=== PATIENT | female | born 1980 | race Two or more races ===

== ENCOUNTER 2018-12-02 08:18 | Emergency (ER) | payer MEDICAID, OTHER ==
[~2018-12-02] VITALS: Ht 149.9 cm; Wt 79.4 kg
[2018-12-02 09:14] LABS: Urine Bacteria FEW /hpf (None Seen); Urine Blood 2+ /uL (Negative); Urine Mucus FEW (None Seen); Urine Specific Gravity 1.024 (1.001-1.035); Urine WBC 1 /hpf (0 - 5)
[2018-12-02 09:31] LABS: Albumin 3.5 g/dL (3.4-5.0); Basophils # (auto) 0 uL; Basophils % (auto) 0.7 % (0.0-2.0); Calcium 9.1 mg/dL (8.5-10.1); Eosinophils # (auto) 0.1 uL; Eosinophils % (auto) 1.5 % (0.0-7.0); Hemoglobin 14.4 g/dL (12.2-16.2); Nucleated Red Blood Cells % 0.1 %; Potassium 3.8 mmol/L (3.5-5.1)
[2018-12-02 09:33] LABS: Hematocrit 43.4 % (36.0-46.0); Lymphocytes # (auto) 1.9 uL; Lymphocytes % (auto) 26.7 % (10.0-50.0); Mean Corpuscular Hemoglobin 27.3 pg (28.0-32.0); Mean Corpuscular Hgb Conc. 33.2 g/dL (32.0-36.0); Mean Corpuscular Volume 82.1 fL (80.0-100.0); Monocytes # (auto) 0.5 uL; Monocytes % (auto) 7.5 % (0.0-12.0); Neutrophils # (auto) 4.6 uL; Neutrophils % (auto) 63.6 % (37.0-80.0); Platelet Count (auto) 263 10^3/uL (140-450); Red Blood Cells 5.28 10^6/uL (4.0-5.20); Red Cell Distribution Width 17.8 % (11.8-14.3); White Blood Cell 7.2 10^3/uL (4.4-10.8)
[2018-12-02 09:35] LABS: BUN/Creatinine Ratio 16.7; Bilirubin, Total 0.5 mg/dL (0.2-1.0); Total Protein 7.8 g/dL (6.4-8.2)
[2018-12-02] MEDS ORDERED: LABETALOL HCL 5 MG/ML ML 20ML VIAL IV ONE (11:00)
[2018-12-02 13:19] VITALS: BP 134/78
== END 2018-12-02 13:44 | disposition home or self-care (01) ==
LOC: ER 08:25
DX: N93.8 Other specified abnormal uterine and vaginal bleeding (principal); R73.9 Hyperglycemia, unspecified; R74.8 Abnormal levels of other serum enzymes; I10 Essential (primary) hypertension; E66.9 Obesity, unspecified; Z68.35 Body mass index [BMI] 35.0-35.9, adult; Z88.8 Allergy status to other drugs, medicaments and biological substances
CPT/HCPCS: 36415; 76856; 80053; 81001; 83690; 84702; 85025; 96374

== ENCOUNTER 2021-08-22 10:17 | Emergency (ER) | payer MEDICAID ==
[~2021-08-22] VITALS: Ht 149.9 cm; Wt 66.7 kg
[2021-08-22 10:49] LABS: Basophils # (auto) 0 10 ^3/uL (0-0.2); Eosinophils # (auto) 0.1 10 ^3/uL (0-0.8); Eosinophils % (auto) 1.6 % (0.0-7.0); Hemoglobin 10.2 g/dL (12.2-16.2); Lymphocytes # (auto) 1.5 10 ^3/uL (0.4-5.4); Monocytes # (auto) 0.3 10 ^3/uL (0-1.3)
[2021-08-22 10:51] LABS: Hematocrit 31.8 % (36.0-46.0); Lymphocytes % (auto) 31.2 % (10.0-50.0); Mean Corpuscular Hemoglobin 24.4 pg (28.0-32.0); Mean Corpuscular Hgb Conc. 31.9 g/dL (32.0-36.0); Mean Corpuscular Volume 76.6 fL (80.0-100.0); Monocytes % (auto) 5.4 % (0.0-12.0); Neutrophils % (auto) 60.8 % (37.0-80.0); Nucleated Red Blood Cells % 0.3 %; Red Blood Cells 4.16 10^6/uL (4.0-5.20); Red Cell Distribution Width 16.9 % (11.8-14.3); White Blood Cell 4.9 10^3/uL (4.4-10.8)
[2021-08-22 11:09] LABS: Albumin 3.2 g/dL (3.4-5.0); Calcium 8.6 mg/dL (8.5-10.1); Potassium 4.3 mmol/L (3.5-5.1)
[2021-08-22 11:13] LABS: BUN/Creatinine Ratio 10.3; Bilirubin, Total 0.6 mg/dL (0.2-1.0); Total Protein 7.5 g/dL (6.4-8.2)
[2021-08-22] MEDS ORDERED: MECLIZINE HCL 25 MG TAB PO ONE (13:00)
[2021-08-22 13:28] LABS: Urine Bacteria NONE SEEN /hpf (None Seen); Urine Blood Negative /uL (Negative); Urine Mucus FEW (None Seen); Urine Specific Gravity 1.021 (1.001-1.035); Urine WBC 9 /hpf (0 - 5)
[2021-08-22] MEDS ORDERED: MECL25TA18 PO ×2 (14:50→15:17)
[2021-08-22] MEDS ORDERED: ONDA-144 PO ×2 (14:50→15:17)
[2021-08-22 15:00] VITALS: BP 161/78
== END 2021-08-22 16:14 | disposition home or self-care (01) ==
LOC: ER 10:17
DX: R42 Dizziness and giddiness (principal); R51.9 Headache, unspecified; D64.9 Anemia, unspecified; R73.9 Hyperglycemia, unspecified; J45.909 Unspecified asthma, uncomplicated; Z79.899 Other long term (current) drug therapy; Z88.8 Allergy status to other drugs, medicaments and biological substances
CPT/HCPCS: 36415; 70450; 80053; 81001; 81025; 85025; 93005; 99285; J8597

== ENCOUNTER 2024-08-24 16:39 | Emergency (ER) | payer MEDICAID ==
[~2024-08-24] VITALS: Ht 157.5 cm; Wt 81.3 kg
[~2024-08-24 16:39] MED LIST: MECL-90 PO; ONDA-144 PO
[2024-08-24 16:55] VITALS: BP 211/109; PULSE 96; RESP 20; TEMP 98.8; O2SAT 98
--- NOTE | 2024-08-24 16:58 | ED.PDOC ---
HPI Comments 44 year old female presents to the ED with a chief complaint of chest pain onset last night. Patient has a PMHx of HTN, is not compliant with medication, last dose was taken 1 day ago. Patient was laying down when she began experiencing chest pain, described as a pressure sensation as well as low back pain, shortness of breath. She took "XL-3" medication for cough and cold symptoms with slight improvement. Patient came to urgent care and was sent to ED due to high BP, 224/114. Upon ED arrival BP was 211/109. Patient states she has had increased of stress these past few days. Denies nausea, vomiting, diarrhea, headache, dizziness, cough, dysuria, fever, chills. No other symptoms or modifying factors present at this time. Time Seen by MD: 16:45 Primary Care Provider: KATARINA Reviewed Notes: Nurses Notes, Medications, Allergies Allergies: Coded Allergies: Sumatriptan (Verified Allergy, Severe, 12/02/18) Home Meds Active Scripts Ondansetron (Zofran) 4 Mg Tab, 4 MG PO Q8HPRN PRN for 3 Days, #10 MG Prov:TAVO MILLER DO 08/22/21 Meclizine Hcl (Meclizine Hcl) 25 Mg Tab, 25 MG PO TIDPRN PRN for 3 Days, #10 MG Prov:TAVO MILLER DO 08/22/21 Information Source: Patient Mode of Arrival: Ambulatory Severity: Moderate Timing: Days Duration: Since onset Prehospital treatment: None Location: Chest (L) Radiation: No Radiation Quality: Pressure Onset: At Rest Cardiac Risk Factors: HTN PE Risk Factors: None History of: None Modifying Factors: Nothing Associated Signs and Symptoms: SOB Past Medical History PAST MEDICAL HISTORY: HTN 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 History: Other Family History Family History: Family hx of DM, Family hx of heart kristen, Family hx of HTN Social History Smoker: Non-Smoker Alcohol: Occasionally Drugs: Denies Drug Use Lives In: Home Constitutional: denies: chills, diaphoresis, fatigue, fever, malaise, sweats, weakness, others EENTM: denies: blurred vision, double vision, ear bleeding, ear discharge, ear drainage, ear pain, ear ringing, eye pain, eye redness, hearing loss, mouth pain, mouth swelling, nasal discharge, nose bleeding, nose congestion, nose pain, photophobia, tearing, throat pain, throat swelling, voice changes, others Respiratory: denies: cough, hemoptysis, orthopnea, SOB at rest, shortness of breath, SOB with excertion, stridor, wheezing, others Cardiovascular: reports: chest pain; denies: dizzy spells, diaphoresis, Dyspnea on exertion, edema, irregular heart beat, left arm pain, lightheadedness, palpitations, PND, syncope, others Gastrointestinal: denies: abdomen distended, abdominal pain, blood streaked bowels, constipated, diarrhea, dysphagia, difficulty swallowing, hematemesis, melena, nausea, poor appetite, poor fluid intake, rectal bleeding, rectal pain, vomiting, others Genitourinary: denies: abnormal vagina bleeding, burning, dyspareunia, dysuria, flank pain, frequency, hematuria, incontinence, pain, , vagina discharge, urgency, others Neurological: denies: dizziness, fainting, headache, left sided numbness, left sided weakness, numbness, paresthesia, pre-existing deficit, right sided numbness, right sided weakness, seizure, speech problems, tingling, tremors, weakness, others Musculoskeletal: reports: back pain; denies: gout, joint pain, joint swelling, muscle pain, muscle stiffness, neck pain, others Integumetry: denies: bruises, change in color, change in hair/nails, dryness, laceration, lesions, lumps, rash, wounds, others Allergic/Immunocompromised: denies: Difficulty Healing, Frequent Infections, Hives, Itching, others Hematologic/Lymphatic: denies: anemia, blood clots, easy bleeding, easy bruising, swollen glands, others Endocrine: denies: excessive hunger, excessive sweating, excessive thirst, excessive urination, flushing, intolerance to cold, intolerance to heat, unexplained weight gain, unexplained weight loss, others Psychiatric: denies: anxiety, bipolar disorder, depression, hopeless, panic disorder, schizophrenia, sleepless, suicidal, others All Other Systems: Reviewed and Negative Physical Exam General Appearance: Moderate Distress HEENT: Normal ENT Inspection, Pharynx Normal, TMs Normal Neck: Full Range of Motion, Non-Tender, Normal, Normal Inspection Respiratory: Chest Non-Tender, Lungs Clear, No Accessory Muscle Use, No Respiratory Distress, Normal Breath Sounds Cardiovascular: No Edema, No JVD, No Murmur, No Gallop, Normal Peripheral Pulses, Regular Rate/Rhythm Breast Exam: Deferred Gastrointestinal: No Organomegaly, Non Tender, No Pulsatile Mass, Normal Bowel Sounds, Soft Genitalia: Deferred Pelvic: Deferred Rectal: Deferred Extremities: No calf tenderness, Normal capillary refill, No pedal edema Musculoskeletal : Apperance: Normal Neurologic: Alert, brush filler hand II-XII nml as Tested, No Motor Deficits, Normal Affect, Normal Mood, No Sensory Deficits Cerebellar Function: Normal Reflexes: Normal Skin: Dry, Normal Color, Warm Lymphatic: No Adenopathy EKG EKG : Cardiac Rhythm: ST (102) Hypertrophy: LAE, LVH Comments tachycardiac 102 bpm Was a procedure done? Was a procedure done?: No CP Differential Dx Differential Diagnosis: Angina, NV, Pulmonary Embolus Differential Diagnosis: CHF Differential Diagnosis: Pericarditis X-Ray, Labs, Meds, VS Vital Signs Date Time Temp Pulse Resp B/P (MAP) Pulse Ox O2 Delivery O2 Flow Rate FiO2 08/24/24 16:55 98.8 96 20 211/109 (143) 98 98.8 08/24/24 16:44 102 Lab Test 08/24/24 16:51 Range/Units White Blood Count 4.1 L 4.4-10.8 10^3/uL Red Blood Count 5.32 H 4.0-5.20 10^6/uL Hemoglobin 9.5 L 12.2-16.2 g/dL Hematocrit 32.6 L 36.0-46.0 % Mean Corpuscular Volume 61.3 L 80.0-100.0 fL Mean Corpuscular Hemoglobin 17.8 L 28.0-32.0 pg Mean Corpuscular Hemoglobin Concent 29.1 L 32.0-36.0 g/dL Red Cell Distribution Width 20.2 H 11.8-14.3 % Platelet Count 219 140-450 10^3/uL Mean Platelet Volume 8.7 6.9-10.8 fL Neutrophils (%) (Auto) 73.4 37.0-80.0 % Lymphocytes (%) (Auto) 14.5 10.0-50.0 % Monocytes (%) (Auto) 10.2 0.0-12.0 % Eosinophils (%) (Auto) 0.7 0.0-7.0 % Basophils (%) (Auto) 1.2 0.0-2.0 % Neutrophils # (Auto) 3.0 1.6-8.6 10 ^3/uL Lymphocytes # (Auto) 0.6 0.4-5.4 10 ^3/uL Monocytes # (Auto) 0.4 0-1.3 10 ^3/uL Eosinophils # (Auto) 0 0-0.8 10 ^3/uL Basophils # (Auto) 0 0-0.2 10 ^3/uL Nucleated Red Blood Cells 0.1 % D-Dimer, Quantitative 0.41 0.0-0.49 mg/L FEU Sodium Level 135 L 136-145 mmol/L Potassium Level 3.6 3.5-5.1 mmol/L Chloride Level 100 98-107 mmol/L Carbon Dioxide Level 26 20-31 mmol/L Anion Gap 9 5-15 Blood Urea Nitrogen 6 L 9-23 mg/dL Creatinine 0.62 0.550-1.02 mg/dL Glomerular Filtration Rate Calc 113 >90 mL/min BUN/Creatinine Ratio 9.7 L 10.0-20.0 Serum Glucose 248 H 74-106 mg/dL Calcium Level 9.5 8.7-10.4 mg/dL Troponin I High Sensitivity 4 </=34 ng/L The patient was CBC shows anemia with a hemoglobin of 9.5 and hematocrit 32.6 The rest of the CBC is within normal limits The D-dimer is 0.41 The chemistry panel is within normal limits except for hyperglycemia at 248 The troponin level is negative At this time, the patient was to be further evaluated and a has a chest x-ray but it seems that the patient was eloped from the department's We told the patient was specifically that the blood pressure was too elevated to leave with the patient's seems to have eloped Time of 1ST Reevaluation: 17:15 Reevaluation 1ST: Unchanged Patient Education/Counseling: Diagnosis, Treatment, Prognosis Family Education/Counseling: No Family Present Additional Information -Reviewed patient's previous visit(s): None - The following tests were ordered, and results were reviewed by me: EKG -x3, CBC, D-DIMER, XY CHEST 2 VIEWS, TROP -x3, BMP - I reviewed and agreed with the following test results read by other provider: XY CHEST 2 VIEWS - I discussed treatments and results with medical personnel and: patient Comprehensive systems review obtained and negative except for what is stated in the HPI. Departure 1 Departure Time of Disposition: 18:52 Impression: Primary Impression: Accelerated hypertension Additional Impression: Acute chest pain Disposition: 09 ADMITTED INPATIENT Admit to: Tele Condition: Fair Critical Care Note Critical Care Time?: No Stability Stability form required: No Heart Score Heart Score: Heart Score Response (Comments) Value History Moderate Suspicious 1 EKG Repolarization Disturb 1 Age <45 0 Risk Factors 1 or 2 risk factors 1 Troponin Normal limit 0 Total 3 I personally scribed for HARLEY WHITE MD ([email or web address]) on 08/24/24 at 16:58. Electronically submitted by Tricia Arreola ([email or web address]). I personally scribed for HARLEY WHITE MD ([email or web address]) on 08/24/24 at 17:03. Electronically submitted by Tricia Arreola ([email or web address]). I personally scribed for HARLEY WHITE MD ([email or web address]) on 08/24/24 at 17:05. Electronically submitted by Tricia Arreola ([email or web address]). HARLEY WHITE MD Aug 24, 2024 16:58
[2024-08-24] MEDS ORDERED: ASPirin 81 mg TAB PO ONE (17:00)
[2024-08-24 17:11] LABS: Basophils # (auto) 0 10 ^3/uL (0-0.2); Eosinophils # (auto) 0 10 ^3/uL (0-0.8); Eosinophils % (auto) 0.7 % (0.0-7.0); Hemoglobin 9.5 g/dL (12.2-16.2); Lymphocytes # (auto) 0.6 10 ^3/uL (0.4-5.4); Mean Corpuscular Hemoglobin 17.8 pg (28.0-32.0); Monocytes # (auto) 0.4 10 ^3/uL (0-1.3); Nucleated Red Blood Cells % 0.1 %; Red Blood Cells 5.32 10^6/uL (4.0-5.20); White Blood Cell 4.1 10^3/uL (4.4-10.8)
[2024-08-24 17:13] LABS: Basophils % (auto) 1.2 % (0.0-2.0); Hematocrit 32.6 % (36.0-46.0); Lymphocytes % (auto) 14.5 % (10.0-50.0); Mean Corpuscular Hgb Conc. 29.1 g/dL (32.0-36.0); Mean Corpuscular Volume 61.3 fL (80.0-100.0); Monocytes % (auto) 10.2 % (0.0-12.0); Neutrophils % (auto) 73.4 % (37.0-80.0); Platelet Count (auto) 219 10^3/uL (140-450)
[2024-08-24 17:14] LABS: Red Cell Distribution Width 20.2 % (11.8-14.3)
[2024-08-24 17:16] LABS: Chloride 100 mmol/L (98-107); Potassium 3.6 mmol/L (3.5-5.1)
[2024-08-24 17:17] LABS: Anion Gap 9 (5-15); Calcium 9.5 mg/dL (8.7-10.4); Carbon Dioxide 26 mmol/L (20-31)
[2024-08-24 17:22] LABS: BUN/Creatinine Ratio 9.7 (10.0-20.0)
[2024-08-24 18:30] LABS: Blood Urea Nitrogen 6 mg/dL (9-23); Glucose 248 mg/dL (74-106); Sodium 135 mmol/L (136-145)
--- NOTE | 2024-08-24 19:03 | ECG ---
[facility] Test Date: 2024-08-24 Test Time: 16:44:32 Pat Name: SHRADDHA VELASCO Department: ER Room: Gender: F Vp Of Product: YF : 1980 Requested By: HARLEY WHITE Order Number: [id number] Reading MD: eLe Rodriguez Measurements Intervals Walls Rate: 102 P: 55 MD: 185 QRS: 15 QRSD: 98 T: 59 QT: 375 QTc: 489 Interpretive Statements Sinus tachycardia Probable left atrial enlargement LVH with secondary repolarization abnormality Borderline prolonged QT interval Baseline wander in lead(s) V1,V2,V3,V4,V5 Electronically Signed On 08-26-2024 20:49:17 PDT by Lee Rodriguez Please click the below link to view image of tracing.
== END 2024-08-24 18:53 | disposition left against medical advice (07) ==
LOC: ER 16:42
DX: I10 Essential (primary) hypertension (principal); R07.89 Other chest pain; Z88.1 Allergy status to other antibiotic agents
CPT/HCPCS: 36415; 80048; 84484; 85025; 85379; 93005